=== PATIENT | female | born 1990 | race Caucasian/White ===

== ENCOUNTER 2016-10-04 07:49 | Emergency (ER) | payer BC, OTHER ==
[~2016-10-04] VITALS: Ht 152.4 cm; Wt 69.5 kg
[2016-10-04 07:51] VITALS: Ht 152.4 cm; Wt 69.5 kg
[2016-10-04] MEDS ORDERED: ONDANSETRON 4 MG INJ IV STA (08:04)
[2016-10-04] MEDS: morphine 4 MG/ML VIAL IV STA ×2 (08:28→08:41)
[2016-10-04 08:30] LABS: URINE BLOOD (Dip) POC 2+ (NEGATIVE)
[2016-10-04] MEDS ORDERED: SOD CHLORIDE 0.9% 1,000 ML IV ONE (08:30)
[2016-10-04] MEDS ORDERED: SODIUM CHLORIDE 0.9% 1L BAG IV* STA (08:48)
--- NOTE | 2016-10-04 08:48 | ERD ---
ER Documentation Chief Complaint Date/Time DATE: 10/04/16 TIME: 08:45 Chief Complaint painful urination,lower back pain, nausea,vomitting, fever since last night HPI This is a 18-year-old female presenting to emergency department with dysuria, lower flank pain, nausea vomiting and fever 2 days. Patient states symptoms started last night. Patient began having pain to left flank that radiates to left upper and lower quadrant of abdomen. Patient did not check temperature at home however states she felt warm. Patient has dysuria and urinary frequency and urgency. Denies hematuria. ROS All systems reviewed and are negative except as per history of present illness. Medications Home Meds Active Scripts Ibuprofen* (Motrin*) 600 Mg Tab, 600 MG PO Q6, #15 TAB Prov:KYELR SANDERS NP 10/04/16 Hydrocodone/Acetaminophen (Harvard 5-325 Tablet) 1 Each Tablet, 1 TAB PO Q6H Y for PAIN, #7 TAB Prov:KYLER SANDERS NP 10/04/16 Tamsulosin Hcl* (Flomax*) 0.4 Mg Cap.er.24h, 0.4 MG PO QPM, #7 CAP Prov:KYLER SANDERS NP 10/04/16 Ciprofloxacin Hcl* (Ciprofloxacin Hcl*) 500 Mg Tablet, 500 MG PO BID for 7 Days , TAB Prov:KYLER SANDERS NP 10/04/16 Allergies Allergies: Coded Allergies: No Known Allergy (Unverified , 10/04/16) PMhx/Soc Medical and Surgical Hx: pt denies Medical Hx, pt denies Surgical Hx Hx Alcohol Use: No Hx Substance Use: No Hx Tobacco Use: No Smoking Status: Never smoker Physical Exam Vitals Vital Signs Date Time Temp Pulse Resp B/P Pulse Ox O2 Delivery O2 Flow Rate FiO2 10/04/16 11:07 88 18 126/76 100 Room Air 10/04/16 10:44 99.0 10/04/16 08:56 101.3 94 18 100 Room Air 10/04/16 07:51 101.5 114 25 137/89 98 Physical Exam Const: alert, unable to sit down due to pain Head: Atraumatic Eyes: Normal Conjunctiva ENT: Normal External Ears, Nose and Mouth. Neck: Full range of motion..~ No meningismus. Resp: Clear to auscultation bilaterally Cardio: Regular rate and rhythm, no murmurs Abd: Soft, non distended. Normal bowel sounds, generalized abdominal tenderness to palpation in all quadrants Skin: No petechiae or rashes Back: No midline tenderness. tenderness to left flank. Ext: No cyanosis, or edema Neur: Awake and alert Psych: Normal Mood and Affect Result Diagram: 10/04/16 0832 10/04/16 0832 Results 24 hrs Laboratory Tests Test 10/04/16 08:30 10/04/16 08:32 10/04/16 08:36 10/04/16 09:00 Urine Color YELLOW Urine Clarity SLIGHTLY CLOUDY Urine pH 5.0 Urine Specific Crescent 1.016 Urine Ketones TRACEmg/dL Urine Nitrite POSITIVEmg/dL Urine Bilirubin NEGATIVEmg/dL Urine Urobilinogen NEGATIVEmg/dL Urine Leukocyte Esterase 2+Maddy/ul Urine Microscopic RBC 31/HPF Urine Microscopic WBC 80/HPF Urine Bacteria FEW/HPF Urine Mucus FEW/HPF Urine Hemoglobin 2+mg/dL Urine Glucose NEGATIVEmg/dL Urine Total Protein 1+mg/dl White Blood Count 15.610^3/ul Red Blood Count 4.4610^6/ul Hemoglobin 13.0g/dl Hematocrit 38.4% Mean Corpuscular Volume 86.1fl Mean Corpuscular Hemoglobin 29.1pg Mean Corpuscular Hemoglobin Concent 33.9g/dl Red Cell Distribution Width 12.3% Platelet Count 51424^3/UL Mean Platelet Volume 9.9fl Neutrophils % 79.2% Lymphocytes % 9.5% Monocytes % 10.5% Eosinophils % 0.0% Basophils % 0.3% Nucleated Red Blood Cells % 0.0/100WBC Neutrophils # 12.310^3/ul Lymphocytes # 1.510^3/ul Monocytes # 1.610^3/ul Eosinophils # 0.010^3/ul Basophils # 0.110^3/ul Nucleated Red Blood Cells # 0.010^3/ul Prothrombin Time 13.6Sec Prothrombin Time Ratio 1.1 INR International Normalized Ratio 1.04 Activated Partial Thromboplast Time 31.9Sec Sodium Level 142mmol/L Potassium Level 3.5mmol/L Chloride Level 102mmol/L Carbon Dioxide Level 23mmol/L Anion Gap 21 Blood Urea Nitrogen 7mg/dl Creatinine 0.59mg/dl Glucose Level 141mg/dl Calcium Level 9.3mg/dl Total Bilirubin 0.6mg/dl Direct Bilirubin 0.00mg/dl Indirect Bilirubin 0.6mg/dl Aspartate Amino Transf (AST/SGOT) 23IU/L Alanine Aminotransferase (ALT/SGPT) 34IU/L Alkaline Phosphatase 85IU/L Total Protein 9.1g/dl Albumin 5.0g/dl Globulin 4.10g/dl Albumin/Globulin Ratio 1.21 Bedside Urine pH (LAB) 5.5 Bedside Urine Protein (LAB) 2+ Bedside Urine Glucose (UA) Negative Bedside Urine Ketones (LAB) 1+ Bedside Urine Blood 2+ Bedside Urine Nitrite (LAB) Positive Bedside Urine Leukocyte Esterase (L 2+ Lactic Acid Level 1.1mmol/L Current Medications Medications (Trade) Dose Ordered Sig/Adal Route PRN Reason Start Time Stop Time Status Last Admin Dose Admin Sodium Chloride (NS) 1,000 ml @ 1,000 mls/hr Q1H ONCE IV 10/04/16 08:30 10/04/16 09:29 DC 10/04/16 08:29 Morphine Sulfate (morphine) 4 mg ONCE STAT IV 10/04/16 08:04 10/04/16 08:15 DC Ondansetron HCl (Zofran Inj) 4 mg ONCE STAT IV 10/04/16 08:04 10/04/16 08:15 DC 10/04/16 08:28 Sodium Chloride (NS) 2,150 ml BOLUS OVER 2 HOURS STAT IV* 10/04/16 08:48 10/04/16 08:51 DC 10/04/16 09:29 Acetaminophen 500 mg 500 mg ONCE STAT PO 10/04/16 09:06 10/04/16 09:07 DC 10/04/16 09:28 Ceftriaxone Sodium (Rocephin) 50 ml @ 100 mls/hr ONCE ONCE IVPB 10/04/16 10:00 10/04/16 10:29 DC 10/04/16 09:54 Procedures/[place] [address] Radiology Main Line: [phone] DIAGNOSTIC IMAGING REPORT Patient: RUTH HENDRICKS : 1990 Age: 26 Sex: F MR #: [id number] DOS: 10/04/16 0848 Ordering MD: TOMMY, KYLER R. TRIAGE CLINICIAN Location: [facility] Room/Bed: PROCEDURE: XR Chest. CLINICAL INDICATION: chest pain, sepsis TECHNIQUE: Single frontal view of the chest was obtained COMPARISON: None FINDINGS: The heart and mediastinum are within normal limits. The lungs are clear. There is scoliosis of the spine. There is no pleural effusion or pneumothorax. RPTAT: AA IMPRESSION: No acute disease. [place] [address] Radiology Main Line: [phone] DIAGNOSTIC IMAGING REPORT Patient: RUTH HENDRICKS : 1990 Age: 26 Sex: F MR #: [id number] DOS: 10/04/16803 Ordering MD: KYLER SANDERS NP Location: [facility] Room/Bed: PROCEDURE: US Renal CLINICAL INDICATION: Left flank pain. TECHNIQUE: Multiple sonographic images of the kidneys and bladder were obtained. Evaluation of the kidneys and bladder was performed as well with gallardo scale and color and Doppler evaluation using a curved array transducer. The images were reviewed on a high-resolution PACS workstation. COMPARISON: Correlation with CT from the same day. FINDINGS: The kidneys are well visualized. The right kidney measures 11.6 cm in length. The left kidney measures 11.8 cm in length. The interpolar aspect of the left renal cortex appears prominent compared to the right. There is no mass, calculus, or obstructive uropathy. No perinephric fluid collection is seen. The bladder is decompressed and collapsed. IMPRESSION: Mildly prominent appearance of the left renal cortex at the interpolar aspect, cannot rule out possible focal inflammation as may be seen with pyelonephritis. Correlate with urinary analysis. [place] [address] Radiology Main Line: [phone] DIAGNOSTIC IMAGING REPORT Patient: RUTH HENDRICKS : 1990 Age: 26 Sex: F MR #: [id number] DOS: 10/04/16803 Ordering MD: KYLER SANDERS NP Location: E Room/Bed: PROCEDURE: CT abdomen and pelvis without contrast. CLINICAL INDICATION: Left flank pain TECHNIQUE: CT scan of the abdomen and pelvis without contrast was performed and is reconstructed at 2.5 mm contiguous axial intervals from the dome of the diaphragm to the inferior pubic rami.. The patient was scanned without intravenous contrast. Sagittal and coronal reformatted images were obtained from the axial source images. The calculated radiation dose measures 661 mGy centimeters. The CTDI measures 12th mGy. COMPARISON: None. FINDINGS: The lung bases are clear of any infiltrate or nodule. No effusion is seen. The liver is of normal size, contour and attenuation with no mass or ductal dilatation. No gallstones are visualized. No splenic, adrenal or pancreatic abnormalities present. Right kidney is of normal size and contour. No hydronephrosis, calculus or masses seen. There is left perinephric stranding. The left renal mass or calculus is present. There is mild left hydroureter nephrosis. There is a 2 mm calcification in the left lo pelvis. It is unclear if this represents a ureteral stone. Ureters are of normal course and caliber with no stone. No bladder mass or stone is present. Uterus and ovaries are normal. There is no aneurysm. No adenopathy is present. No bowel mass or obstruction is present. The appendix is normal. No phlegmon , ascites or pneumoperitoneum is visualized. 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 IMPRESSION: Left perinephric stranding with mild hydroureter nephrosis. Question 2 mm stone distal left ureter versus pelvic phlebolith. Rotary levoscoliosis lumbar spine. MDM: 26-year-old female presents emergency department with dysuria, left flank pain, nausea, vomiting and fever 2 days. Patient presents with temperature of 101.5F with heart rate 114 bpm and respiratory rate 25/min. Patient rating pain 7/10 to left flank that radiates to left sided abdomen. Patient meets SIRS criteria and labs , chest x-ray and IV fluid bolus ordered. Labs drawn and IV access obtained. Patient given 1 L fluid bolus of normal saline. Urine dip shows 2+ leukocyte esterase, positive nitrite, 2+ blood, 1+ ketones and 2+ protein. Urine is negative. Labs show elevated white blood cell count of 15.6 with neutrophilia. CMP shows no electrolyte imbalance. Normal creatinine and BUN. Lactic acid 1.1. Renal ultrasound reviewed by radiologist as mildly prominent appearance of the left renal cortex at the interpolar aspect , cannot rule out possible focal inflammation as may be seen with pyelonephritis. CT abdomen and pelvis reviewed by radiologist as left marni- phrenic stranding with mild hydroureteronephrosis. Question 2 mm stone distal left ureter versus pelvic phlebolith. Rotary levoscoliosis lumbar spine. Consulted Dr. Do regarding this patient who suggested a consult with urology. Consulted business applications analyst urologist, Dr. France, and based on clinical picture and patient's stability, we agree that patient is appropriate for outpatient management with pain medication and Cipro 500mg q12 hrs x 10 days. Patient given Rocephin 1 g IV while the ED. Patient remains hemodynamically stable. No active vomiting on the ED. patient states she is feeling much better. Diagnosis is pyelonephritis vs septic stone. Patient is appropriate for outpatient management will be given prescription for Ibuprofen 600mg #15, Harvard 5/325mg #7, Flomax 0.4mg Qpm #7 and Cipro 500 mg every 12 hours 7 days. Instructed patient to follow-up with urologist Dr. France in the next 24-48 hours for reassessment and additional management. Return to ED for any high fever, chest pain, difficulty breathing, shortness breath, wheezing, vomiting, diarrhea, abdominal pain or any new or worsening symptoms. Patient verbalizes understanding. All questions answered at discharge. Departure Diagnosis: Primary Impression: Pyelonephritis Condition: Stable KYLER SANDERS NP Oct 04, 2016 08:48
[2016-10-04 09:05] LABS: ABNORMAL IP MESSAGE 1; BASOPHIL # 0.1 10^3/ul (0.0-0.1); BASOPHILS % 0.3 % (0.0-2.0); HEMATOCRIT 38.4 % (37.0-47.0); LYMPHOCYTES # 1.5 10^3/ul (0.8-2.9); LYMPHOCYTES % 9.5 % (15.0-51.0); MEAN CORPUSCULAR HEMOGLOBIN 29.1 pg (29.0-33.0); MEAN CORPUSCULAR HGB CONC 33.9 g/dl (32.0-37.0); MEAN CORPUSCULAR VOLUME 86.1 fl (82.0-101.0); MEAN PLATELET VOLUME 9.9 fl (7.4-10.4); MONOCYTE # 1.6 10^3/ul (0.3-0.9); MONOCYTES % 10.5 % (0.0-11.0); NEUTROPHIL # 12.3 10^3/ul (1.6-7.5); NEUTROPHILS % 79.2 % (39.0-77.0); PLATELET COUNT 250 10^3/UL (140-415); RED BLOOD COUNT 4.46 10^6/ul (4.20-5.40); RED CELL DISTRIBUTION WIDTH 12.3 % (11.5-14.5); WHITE BLOOD COUNT 15.6 10^3/ul (4.8-10.8)
[2016-10-04] MEDS ORDERED: ACETAMINOPHEN 500 MG TAB PO STA (09:06)
[2016-10-04 09:10] LABS: ADD UMIC YES; UR ASCORBIC ACID NEGATIVE (NEGATIVE); UR BACTERIA FEW /HPF (NONE SEEN); UR BILIRUBIN (Dip) NEGATIVE (NEGATIVE); UR BLOOD (Dip) 2+ mg/dL (NEGATIVE); UR CLARITY SLIGHTLY CLOUDY (CLEAR); UR COLOR YELLOW (YELLOW); UR GLUCOSE (Dip) NEGATIVE (NEGATIVE); UR KETONES (Dip) TRACE mg/dL (NEGATIVE); UR LEUKOCYTE ESTERASE (Dip) 2+ Leu/ul (NEGATIVE); UR MUCUS FEW /HPF (NONE SEEN); UR NITRITE (Dip) POSITIVE (NEGATIVE); UR RBC 31 /HPF (0-5); UR SPECIFIC GRAVITY (Dip) 1.016 (1.003-1.030); UR TOTAL PROTEIN (Dip) 1+ mg/dl (NEGATIVE); UR UROBILINOGEN (Dip) NEGATIVE (NEGATIVE)
[2016-10-04 09:16] LABS: ALBUMIN/GLOBULIN RATIO 1.21; BILIRUBIN,INDIRECT 0.6 mg/dl (0-1.1); BILIRUBIN,TOTAL 0.6 mg/dl (0.2-1.3); CALCIUM 9.3 mg/dl (8.4-10.2); CREATININE 0.59 mg/dl (0.44-1.00); POTASSIUM 3.5 mmol/L (3.5-5.1); TOTAL PROTEIN 9.1 g/dl (6.1-8.1)
[2016-10-04 09:17] LABS: POSITIVE DIFF @See below
--- NOTE | 2016-10-04 09:18 | RADRPT ---
PROCEDURE: CT abdomen and pelvis without contrast. CLINICAL INDICATION: Left flank pain TECHNIQUE: CT scan of the abdomen and pelvis without contrast was performed and is reconstructed a t 2.5 mm contiguous axial intervals from the dome of the diaphragm to the inferior pubic rami.. The patient was scanned without intravenous contrast. Sagittal and coronal reformatted images were obt ained from the axial source images. The calculated radiation dose measures 661 mGy centimeters. The CTDI measures 12th mGy. COMPARISON: None. FINDINGS: The lung bases are clear of any infiltrate or nodule. No effusion is seen. The liver is of normal size, contour and attenuation with no mass or ductal dilatation. No gallston es are visualized. No splenic, adrenal or pancreatic abnormalities present. Right kidney is of normal size and contour. No hydronephrosis, calculus or masses seen. There is l eft perinephric stranding. The left renal mass or calculus is present. There is mild left hydroure ter nephrosis. There is a 2 mm calcification in the left lo pelvis. It is unclear if this repres ents a ureteral stone. Ureters are of normal course and caliber with no stone. No bladder mass or s tone is present. Uterus and ovaries are normal. There is no aneurysm. No adenopathy is present. No bowel mass or obstruction is present. The appendix is normal. No phlegmon, ascites or pneumop eritoneum is visualized. 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 IMPRESSION: Left perinephric stranding with mild hydroureter nephrosis. Question 2 mm stone distal left ureter versus pelvic phlebolith. Rotary levoscoliosis lumbar spine. .Eric Pavon MD, MD Date Time Electronically viewed and signed by .Eric Pavon MD, MD on 10/04/2016 09:18 .A/
--- NOTE | 2016-10-04 09:33 | RADRPT ---
PROCEDURE: XR Chest. CLINICAL INDICATION: chest pain, sepsis TECHNIQUE: Single frontal view of the chest was obtained COMPARISON: None FINDINGS: The heart and mediastinum are within normal limits. The lungs are clear. There is scoliosis of the spine. There is no pleural effusion or pneumothorax. RPTAT: AA IMPRESSION: No acute disease. .Stephen Borrero MD, MD Date Time Electronically viewed and signed by .Stephen Borrero MD, on 10/04/2016 09:33 .S/
--- NOTE | 2016-10-04 09:35 | RADRPT ---
PROCEDURE: US Renal CLINICAL INDICATION: Left flank pain. TECHNIQUE: Multiple sonographic images of the kidneys and bladder were obtained. Evaluation of th e kidneys and bladder was performed as well with gallardo scale and color and Doppler evaluation using a curved array transducer. The images were reviewed on a high-resolution PACS workstation. COMPARISON: Correlation with CT from the same day. FINDINGS: The kidneys are well visualized. The right kidney measures 11.6 cm in length. The left kidney measur es 11.8 cm in length. The interpolar aspect of the left renal cortex appears prominent compared to t he right. There is no mass, calculus, or obstructive uropathy. No perinephric fluid collection is seen. The bladder is decompressed and collapsed. IMPRESSION: Mildly prominent appearance of the left renal cortex at the interpolar aspect, cannot rule out possi ble focal inflammation as may be seen with pyelonephritis. Correlate with urinary analysis. RPTAT: JJ .Mukund Cervantes MD, Date Time Electronically viewed and signed by .Mukund Cervantes MD, on 10/04/2016 09:35 .A/
[2016-10-04] MEDS ORDERED: CEFTRIAXONE 1 GM/50 ML (PMX) 50 ML IVPB ONE (10:00)
[2016-10-04 10:44] VITALS: TEMP 99
[2016-10-04] MEDS ORDERED: HYDR-906 PO (10:54)
[2016-10-04] MEDS ORDERED: IBUP-1542 PO (10:54)
[2016-10-04] MEDS ORDERED: CIPR500T4 PO (10:54)
[2016-10-04] MEDS ORDERED: TAMS-14 PO (10:54)
[2016-10-04 11:07] VITALS: BP 126/76; PULSE 88; RESP 18
[2016-10-04 12:16] LABS: INR 1.04; PROTIME 13.6 Sec (12.2-14.2); PT RATIO 1.1
[2016-10-04 12:17] LABS: PARTIAL THROMBOPLASTIN TIME 31.9 Sec (25.0-35.0)
[2016-10-04 16:09] LABS: URINE BLOOD (Dip) POC 2+ (NEGATIVE)
== END 2016-10-04 11:08 | disposition home or self-care (01) ==
LOC: FTE 07:49
DX: N12 Tubulo-interstitial nephritis, not specified as acute or chronic (principal); R07.9 Chest pain, unspecified; R11.2 Nausea with vomiting, unspecified
CPT/HCPCS: 36415; 71010; 74176; 76775; 80053; 81001; 81003; 83605; 85025; 85610; 85730; 87040; 87086; 93005; 96374; 96375; 99285; J0696; J2405; J7030; J2270